=== PATIENT | female | born 1980 | race Caucasian/White ===

== ENCOUNTER 2018-11-07 19:43 | Emergency (ER) | payer BC, OTHER ==
[~2018-11-07] VITALS: Ht 167.6 cm; Wt 59.0 kg
[2018-11-07 19:47] VITALS: BP_SYST 135
--- NOTE | 2018-11-07 19:47 | NUR ---
Patient to ER bed 04 to gown for evaluation. Side rails up.
--- NOTE | 2018-11-07 20:20 | NUR ---
Patient brought in complaining of left foot pain with intermittent redness. Reports being diagnosed with cellulitis 3 months ago and given abx. Reports resolved but returned to left calf last night. Pain 7/10. No other complaints/injuries or as noted. Will continue to monitor.
--- NOTE | 2018-11-07 20:23 | NUR ---
ER Dr. Davis at bedside examining patient.
[2018-11-07] MEDS ORDERED: IBUPROFEN 800 MG TABLET PO ONE (20:30)
[2018-11-07 22:28] VITALS: BP_SYST 132
--- NOTE | 2018-11-07 22:28 | NUR ---
Patient given written and verbal discharge instructions and verbalizes understanding. ER MD discussed with patient the results and treatment provided. Patient in stable condition. ID arm band removed. Rx of Naprosyn 500 mg and cephalexin 500 mg cap given. Patient educated on pain management and to follow up with PMD. Pain Scale 0/10. Opportunity for questions provided and answered. Medication side effect fact sheet provided.
== END 2018-11-07 22:28 | disposition home or self-care (01) ==
LOC: SED 19:43
DX: L03.116 Cellulitis of left lower limb (principal); R03.0 Elevated blood-pressure reading, without diagnosis of hypertension; Z88.1 Allergy status to other antibiotic agents
CPT/HCPCS: 93971; 99284

== ENCOUNTER 2018-11-19 14:57 | Emergency (ER) | payer BC ==
[~2018-11-19] VITALS: Ht 167.6 cm; Wt 61.2 kg
[2018-11-19 14:57] VITALS: BP_SYST 131
--- NOTE | 2018-11-19 15:00 | NUR ---
BROUGHT BACK TO BED #7 AND TRIAGED. REPORT GIVEN TO LIZ
[2018-11-19 15:10] VITALS: BP_SYST 128
--- NOTE | 2018-11-19 15:28 | NUR ---
JULIO C Yi at bedside examining patient.
--- NOTE | 2018-11-19 15:30 | NUR ---
Pt c/o unresolving cellulitis on toenails radiating to bilateral cellulitis. Pt has no evidence of s/s of acute cellulitis at this time.
[2018-11-19 15:48] LABS: BASOPHILS # (AUTO) 0.1 K/uL (0.0-0.2); BASOPHILS % (AUTO) 1.3 % (0.0-2.0); EOSINOPHILS % (AUTO) 0.6 % (0.0-4.0); HEMATOCRIT 41.5 % (36-48); HEMOGLOBIN 14.2 g/dL (12.0-16.0); LYMPHOCYTES # (AUTO) 2.9 K/uL (1.0-5.5); LYMPHOCYTES % (AUTO) 37.1 % (20.5-51.5); MEAN CORPUSCULAR HEMOGLOBIN 29 pg (27-31); MEAN CORPUSCULAR HGB CONC 34 % (32-36); MEAN CORPUSCULAR VOLUME 85 fL (79.0-98.0); MONOCYTES # (AUTO) 0.4 K/uL (0.0-1.0); MONOCYTES % (AUTO) 5.1 % (1.7-9.3); NEUTROPHILS # (AUTO) 4.4 K/uL (1.8-7.7); NEUTROPHILS % (AUTO) 55.9 % (40.0-70.0); PLATELET COUNT (AUTO) 347 K/uL (130-430); WHITE BLOOD COUNT (AUTO) 7.9 K/uL (4.8-10.8)
--- NOTE | 2018-11-19 15:49 | NUR ---
Pt to US
[2018-11-19 16:02] LABS: CREATININE 0.73 mg/dL (0.55-1.30); POTASSIUM 3.9 mmol/L (3.5-5.1)
[2018-11-19 16:06] LABS: ALBUMIN 3.6 g/dL (3.4-4.8)
--- NOTE | 2018-11-19 16:10 | NUR ---
Returned from radiology, back to [facility].
--- NOTE | 2018-11-19 16:30 | NUR ---
Pt medicated tolerated well.
[2018-11-19] MEDS ORDERED: KETOROLAC TROMETHAMINE 60 MG/2 ML VIAL IM ONE (16:45)
--- NOTE | 2018-11-19 17:10 | NUR ---
Patient given written and verbal discharge instructions and verbalizes understanding. ER MD discussed with patient the results and treatment provided. Patient in stable condition. ID arm band removed. Rx of Keflex given. Patient educated on pain management and to follow up with PMD. Pain Scale 3/10 tolerable for pt. Opportunity for questions provided and answered. Medication side effect fact sheet provided.
== END 2018-11-19 17:10 | disposition home or self-care (01) ==
LOC: SED 14:57
DX: R60.0 Localized edema (principal); R03.0 Elevated blood-pressure reading, without diagnosis of hypertension; Z88.8 Allergy status to other drugs, medicaments and biological substances
CPT/HCPCS: 36415; 80053; 81002; 83880; 85025; 93971; 96372; 99284; J1885